=== PATIENT | female | born 1960 | race Caucasian/White ===

== ENCOUNTER → 2016-12-05 | Outpatient (CLI) | payer MEDICARE, OTHER ==
[~2016-12-05] MED LIST: ADVAIR; ADVAIR 250-501 EAC1 IH; ADVAIR 250-501 EAC1 INH; ADVAIR 2501 DISK W/D PO; ADVAIR 5001 DISK W/D PO; ALBUTEROL 0.5ML INH; ALBUTEROL17 GM INH; ALPRAZOLAM PO; ALPRAZOLAM0.5 MG PO; AMLODIPINE BESY10 MG PO; ATARAX PO; AZITHROMYCIN250 MG PO; BACTRIM DS TABL1 TAB PO; BENTYL10 M1 PO; BUSPAR30 MG PO; CAPOZIDE; CEFDINIR300 MG PO; COMBIVENT; COMBIVENT MININEB INH; COMBIVENT MININEB NEB; COMBIVENT RESPIM4 GM INH; COMBIVENT U/D3 M2 INH; COMBIVENT U/D3 M2 PO; COMBIVENT U/D3 ML INH; COMBIVENT14.7 GM INH; DALIRESP500 MCG PO; FLEXERIL10 M1 PO; FLEXERIL10 MG PO; GABAPENTIN400 M2 PO; GABAPENTIN600 MG PO; GLUCOPHAGE500 MG PO; GRALISE600 MG PO; HCTZ PO; HUMIBID-LA600 MG PO; HYDROCODON-ACE1 EAC7 PO; HYDROCODONE-APA1 T57 PO; LEVAQUIN PO; LISINOPRIL; LISINOPRIL PO; LISINOPRIL-HCTZ1 T15 PO; LISINOPRIL-HCTZ1 T17 PO; METFORMIN HCL500 M4 PO; METFORMIN PO; METOPROLOL TAR25 MG PO; MIRALAX119 GM PO; MIRALAX17 GM DOB; MORGIDOX100 MG PO; NICOTINE TRANSD14 MG TD; NILSTAT PO; NORVASC PO; OMEPRAZOLE20 M1 PO; OMNICEF300 M1 PO; OMNICEF300 MG PO; OXYCODONE-ACET1 EAC1 PO; OXYGEN; PATIENT'S PHARMACY; POLYOX WSR-3011 GM PO; PREDNISONE PO; PREDNISONE10 M1 PO; PREDNISONE10 MG PO; PRILOSEC PO; PRILOSEC20 M1 PO; PRILOSEC20 MG PO; SENNA PO; SEROQUEL PO; SEROQUEL100 MG PO; SIMVASTATIN20 MG PO; TEMOVATE EMOLLI30 GM TOP; VISTARIL PO; ZESTORETIC 20-1 EACH PO; ZESTORETIC 20/21 TAB PO; ZOCOR PO; ZOCOR20 MG PO; [UNRECOGNIZED DRUG - REMARK]
--- NOTE | ~2016-12-05 | CT71 ---
[facility] A Service of [facility] RADIOLOGY TEXT RESULTS PATIENT: MINGO VAUGHAN [facility] UN[facility] #: [id number] AGE: [address]: JACKIE TOBAR MD SEX: F ORDER DR: [id number] [place] [id number] [facility]. [place], [place] [address] [id number] O MR#: [id number] Acc #: [id number] NAME: MINGO VAUGHAN. : 1960 SEX: F STUDY DATE/TIME: 12/05/2016 14:26 UNIT: [facility] ROOM: STUDY DESCRIPTION: CT Head Wo Contrast Attending Physician: Jackie Tobar M.D. Referring Physician: Jackie Tobar M.D. Ordering Physician: Jackie Tobar M.D. Primary Care Physician: Jackie Tobar M.D. MEDICAL IMAGING REPORT This report is preliminary unless electronic signature is present EXAM Noncontrast head CT 12/05/2016 HISTORY Frontal headaches every day for the last 6 months. Dizziness, loss of balance. FINDINGS This CT exam was performed with one or more of the following radiation dose reduction techniques: automatic exposure control, adjustment of mA and/or kV according to patient size, and iterative reconstruction. Axial noncontrast imaging of the brain demonstrates the brain parenchyma to be normal. No evidence of mass, mass effect or midline shift. No hemorrhage or abnormal extraaxial fluid collections. Ventricles, sulci and basilar cisterns are age appropriate. Bony calvarium, skull base, mastoids and sinuses are unremarkable. IMPRESSION Normal noncontrast head CT. Please note if clinically indicated further evaluation with MRI may be warranted due to its improved sensitivity for detection of intracranial pathology. Dictated by... Aby Fernandes M.D. THIS IS AN ELECTRONICALLY VERIFIED REPORT Aby Fernandes M.D. at 12/06/2016 8:37 AM Issa TD: 12/05/2016 18:27 JOB #: [id number] [facility] A Service of [facility] RADIOLOGY TEXT RESULTS PATIENT: MINGO VAUGHAN LOCATION: [facility] #: [id number] : [birth year] UNIT #: [id number] AGE: [address]: JACKIE TOBAR MD SEX: F ORDER DR: MEDICAL IMAGING REPORT Page 1 of 1 COPY
== END | disposition home or self-care (01) ==
LOC: CCAT 13:47
DX: R51 Headache (principal)
CPT/HCPCS: 70450

== ENCOUNTER → 2016-12-20 | Outpatient (CLI) | payer MEDICARE, OTHER ==
--- NOTE | ~2016-12-20 | EKG ---
PATIENT: MINGO VAUGHAN UNIT #: [id number] Ventricular Rate: 106 BPM Atrial Rate: 106 BPM P-R Interval: 128 ms QRS Duration: 78 ms Q-T Interval: 346 ms QTC Calculation(Bezet): 459 ms P [place]: 72 degrees Calculated R [place]: 43 degrees Calculated T [place]: 70 degrees Diagnosis Line: Sinus tachycardia Diagnosis Line: Otherwise normal ECG Diagnosis Line: When compared with ECG of 26-DEC-2015 11:23, Diagnosis Line: Criteria for Anterior infarct are no longer Diagnosis Line: Present Diagnosis Line: Borderline criteria for Inferior infarct are no Diagnosis Line: longer Present Diagnosis Line: Nonspecific T wave abnormality no longer evident Diagnosis Line: in Lateral leads Diagnosis Line: QT has shortened Diagnosis Line: Confirmed by JESSE RODRIGUEZ MD ([id number]) on 12/20/2016 Diagnosis Line: 6:50:01 PM INTERPRETING MD: MICHAEL OCHOA
[2016-12-20 09:49] LABS: HEMATOCRIT 37.7 % (35.0-45.0); HEMOGLOBIN 11.9 gm/dL (12.0-16.0); MEAN CELL VOLUME 89.1 FL (83-96); MEAN CORPUSCULAR HEMOGLOBIN 28.3 PG (28-34); MEAN CORPUSCULAR HGB CONC 31.7 g/dL (30-36); MEAN PLATELET VOLUME 7.5 FL (6.5-11.5); RED BLOOD COUNT 4.23 X10e (3.90-5.30); RED CELL DISTRIBUTION WIDTH 15.6 % (11.0-15.5); WHITE BLOOD COUNT 6.1 X10e3 (4.0-10.5)
[2016-12-20 10:03] LABS: PARTIAL THROMBOPLASTIN TIME 24.5 SECONDS (23.5-31.3); PROTHROMBIN TIME (PATIENT) 10.5 SECONDS (9.6-11.5)
[2016-12-20 10:15] LABS: BUN/CREATININE RATIO 14.28; CALCIUM SERUM 9.2 mg/dL (8.4-10.2); CREATININE SERUM 0.7 mg/dL (0.6-1.4); GLOM FILT RATE Estimated 96.9 mL/min (>60); POTASSIUM 4.1 mmol/L (3.5-5.1)
== END | disposition home or self-care (01) ==
LOC: CCVL 09:17
PROVIDERS: Internal Medicine Cardiovascular Disease
DX: R07.89 Other chest pain (principal); I51.9 Heart disease, unspecified; J44.9 Chronic obstructive pulmonary disease, unspecified; F41.9 Anxiety disorder, unspecified; F17.210 Nicotine dependence, cigarettes, uncomplicated; I10 Essential (primary) hypertension; E11.9 Type 2 diabetes mellitus without complications; E78.5 Hyperlipidemia, unspecified
CPT/HCPCS: 36415; 80048; 85027; 85610; 85730; 93005; C1769; C1887; C1894; J1644; J2250; J3010

== ENCOUNTER 2016-12-31 19:19 | Inpatient (IN) | payer MEDICARE, OTHER ==
--- NOTE | ~2016-12-31 | CO ---
Unit #: [id number] #: [id number] Patient: KAREN VAUGHAN [id number] [address] [address] [id number] I MR#: [id number] NAME: KAREN VAUGHAN. ROOM: 326 Age: 56 Sex: F Admission Date: 12/31/2016 : 1960 Attending Physician: Eileen Richardson M.D. Primary Care Physician: Primary Care Physician No Consultation Date: 01/03/2017 CONSULTATION REPORT REASON FOR CONSULTATION Depression, anxiety. HISTORY OF PRESENT ILLNESS Ms. Karen Coleman is a 56-year-old female, seen in room 326, bed 1 on 01/03/2017. The patient was admitted on 12/31/2016 with COPD exacerbation. The patient reports that she is having terrible problem with the anxiety. The patient reported also feeling sad and depressed, received outpatient services through Dr. Anderson seen once. The patient reports current medications are not working. The patient is currently denied any suicidal or homicidal ideation. Denied any psychotic symptom. Denied any use of any drugs or alcohol. The patient's vital signs; temperature 98.4, pulse 104, respirations 18, blood pressure 148/96, and oxygen saturation 98%. PAST PSYCHIATRIC HISTORY Remarkable for history of outpatient treatment. No history of any suicide attempt or any inpatient treatment. MEDICAL HISTORY Remarkable for history of acute on chronic respiratory failure; acute bronchitis; COPD; diabetes mellitus type 2; history of loss of consciousness and confusion secondary to hypercapnia, resolved; oral thrush; anxiety; chronic pain. MEDICATIONS The patient is on albuterol nebulizer, Combivent inhaler, Advair, a tapering dose of prednisone, Neurontin 600 mg t.i.d., metformin, nystatin, Seroquel 100 mg at bedtime, nicotine, Humibid, Zocor, Percocet, omeprazole, Flexeril, and doxycycline. FAMILY HISTORY AND SOCIAL HISTORY The patient has a good support system. No history of abuse. No history of any substance abuse. REVIEW OF SYSTEMS Complete review of systems is unremarkable except as mentioned above. MENTAL STATUS EXAMINATION Vital signs, please see above. General appearance; the patient dressed casually in street clothes, cooperative. Attention span and concentration, fair. Speech; regular rate and coherent. Oriented in time, place, and person. Mood and affect were sad, dysphoric, anxious. Unit #: [id number] #: [id number] Patient: KAREN VAUGHAN Thought process, coherent. Thought content, the patient denied any thoughts of harming self or others or any auditory or visual hallucination. Recent and remote memory, fair. Language, intact. Fund of knowledge, fair. Insight and judgment, fair to slightly impaired. DIAGNOSES Psychiatric: Agoraphobia with panic disorder, F40.01; major depressive disorder, recurrent, severe, F33.2. Secondary diagnosis: Deferred. Medical diagnosis: Please refer to H and P. Stressors: Psychosocial stressors. ASSESSMENT/PLAN 1. Supportive psychotherapy and psychoeducation provided to the patient. 2. Educated about benefits and side effects of medication and course and prognosis of illness. 3. Advised to continue with current combination of medication and advised Seroquel 100 mg at bedtime and advised the patient to follow up in outpatient program such as [facility] program at [facility]. The patient was also given crisis line #[phone] in case of emergency. Please feel free to call if any questions, telephone #[phone]. Dictated by... Patrick Reyes M.D. SAM/lu TD: 01/04/2017 23:00 JOB #: [id number] CONSULTATION REPORT Page 1 of 1 X Patrick Reyes MD X CONSULTATION REPORT
--- NOTE | ~2016-12-31 | EE ---
Unit #: [id number] #: [id number] Patient: MINGO VAUGHAN [id number] [address] [address] [id number] I MR#: [id number] NAME: MINGO VAUGHAN. : 1960 SEX: F STUDY DATE/TIME: 01/01/2017 UNIT: C3A PCU ROOM: [address] [place] [address] DESCRIPTION: EEG Attending Physician: Eileen Richardson M.D. Referring Physician: Tran Raman M.D. Primary Care Physician: No Primary Care Physician NEURODIAGNOSTICS REPORT PROCEDURE PERFORMED EEG. REASON FOR STUDY Mental status changes. EEG DESCRIPTION This is an inpatient, digitally recorded, multi-montage, adult EEG with leads placed according to the International 10-20 system. Hyperventilation was not done, but photic stimulation was attempted. PROCEDURE REPORT With the patient fully aroused, there is 7.5 Hz posterior background. No good alpha. The patient was drowsy. I did not see any deeper stages of sleep. Hyperventilation was not done. Photic stimulation was attempted in intermittent stepwise pattern up to flash frequency of 30 Hz, but I did not see any driving, asymmetry or paroxysmal activity. No clinical events were seen. IMPRESSION This is an abnormal EEG showing mild diffuse slowing, which is indicative of encephalopathy. This is very nonspecific. Nothing suggesting seizure or status. An EEG like this does not rule out epilepsy. Clinical correlation is recommended. Dictated by... Cathy Hurst/yelena TD: 01/02/2017 07:44 JOB #: [id number] Unit #: [id number] #: [id number] Patient: MINGO VAUGHAN NEURODIAGNOSTICS REPORT Page 1 of 1 X Lisa Santos MD NEURODIAGNOSTICS REPORT
--- NOTE | ~2016-12-31 | DS ---
Unit #: [id number] #: [id number] Patient: MINGO VAUGHAN [id number] [address] [address] [id number] I MR#: [id number] NAME: MINGO VAUGHAN. ROOM: [facility] Age: 56 Sex: F Admission Date: 12/31/2016 : 1960 Discharge Date: 01/03/2017 Attending Physician: Eileen Richardson M.D. Primary Care Physician: No Primary Care Physician DISCHARGE SUMMARY DISCHARGE DIAGNOSES 1. Acute on chronic hypoxic respiratory failure. 2. Acute bronchitis. 3. Chronic obstructive pulmonary disease exacerbation. 4. Diabetes mellitus type 2, noninsulin dependent. 5. History of loss of consciousness and confusion, likely secondary to hypercapnia and sedative medicines: Patient is following primary doctor. 6. Smoking. 7. Oral thrush. 8. Anxiety. 9. Chronic pain following pain management. CONSULTATION Dr. Estevez. PROCEDURES None. LAB DATA MRSA negative. Creatinine 0.6, sodium 140, potassium 4.5. EEG shows mild diffuse slowing indicative of encephalopathy, nonspecific. Nothing to suggest seizures or status. Chest x-ray - normal. ABG on admission - pH 7.3, carbon dioxide 60, oxygen 95. ALLERGIES None. DISCHARGE MEDICATIONS 1. Albuterol nebulizer inhalation four times daily p.r.n. shortness of breath. 2. Combivent inhalation four times daily p.r.n. shortness of breath. 3. Advair 250/50, one Diskus inhalation b.i.d. 4. Tapering dose of prednisone. 5. Neurontin 600 three times daily. 6. Metformin 500 daily. 7. Nystatin 5 mL p.o. four times daily. 8. Seroquel 100 at bedtime. 9. Nicotine 14 mg transdermal daily. 10. Humibid LA 600 p.o. b.i.d. Unit #: [id number] #: [id number] Patient: MINGO VAUGHAN 11. Zocor 20 daily. 12. Percocet 10 mg, one tablet four times daily p.r.n. pain. 13. Omeprazole 20 daily. 14. Flexeril 10 mg p.o. b.i.d. p.r.n. muscle spasms. 15. Doxycycline 100 p.o. b.i.d. HOSPITAL COURSE The patient is a 56-year-old admitted because of shortness of breath. Aykyn-ip-mwrkmcz hypercapnic hypoxic respiratory failure from chronic obstructive pulmonary disease: The patient received oxygen. Currently she is on 3 liters. I am going to do home evaluation for daytime oxygen. She is on nighttime oxygen at home at 2 liters. Chronic obstructive pulmonary disease exacerbation with acute bronchitis: The patient was given IV Solu-Medrol, duo-nebs and Dulera. Currently breathing is better. Occasional wheezing present. Prednisone will be continued at home along with doxycycline, duo-nebs and Advair. Syncopal episodes: Outpatient followup has been started by primary care physician. Multiple tests have been done. EEG done here shows slowing. No acute seizure activity. Currently no syncope during the hospitalization course. I recommended followup with her primary care physician. She understands the instructions that she needs to see her primary care physician for her followup of the syncopal episodes. Diabetes mellitus type 2: Uncontrolled initially secondary to steroids. Currently stable. Anxiety: The patient will be seen by psychiatrist here in the hospital and I will discharge this patient home after seen by Dr. Reyes. FOLLOWUP 1. Followup with primary care physician in one week time. 2. Follow up with Dr. Estevez, pulmonary, in three weeks time. 3. Home O2 evaluation. The patient will be discharged after seen by Dr. Reyes. Discharge time taken is 32 minutes. ADDITIONAL JOB #: [id number] Dictated by... Cathy Dno TD: 01/03/2017 08:35 JOB #: [id number] Unit #: [id number] #: [id number] Patient: CLEMENTMINGO Eufemia DISCHARGE SUMMARY Page 1 of 1 X Eileen Richardson MD DISCHARGE SUMMARY
--- NOTE | ~2016-12-31 | HP ---
Unit #: [id number] #: [id number] Patient: MINGO VAUGHAN [id number] [address] [place], [place] [address] [id number] I MR#: [id number] NAME: MINGO VAUGHAN. ROOM: 40637 Age: 56 Sex: F Admission Date: 12/31/2016 : 1960 Attending Physician: Tran Raman M.D. Primary Care Physician: Primary Care Physician No HISTORY AND PHYSICAL CHIEF COMPLAINT COPD exacerbation with hypoxic hypercapnic respiratory failure secondary to bronchitis. HISTORY OF PRESENT ILLNESS This 56-year-old female with O2 dependent-COPD, chronic back pain is admitted for COPD exacerbation. The patient was well until two weeks prior to admission when she noticed that she was more fatigued, feeling hot and cold, with a nonproductive deep cough. More recently has become short of breath and felt very tight in her chest. She presents to this emergency department where she does have expiratory wheezes. Chest x-ray is negative, ABG is consistent with hypoxic hypercapnic respiratory failure. In the ER, the patient was treated with Solu-Medrol and given Robitussin AC. As an aside, the patient states she has had three episodes over the past six months of possible syncope/confusion. Recently underwent cardiac testing as an outpatient. PAST MEDICAL HISTORY 1. AODM. 2. COPD/asthma. Patient uses 2.5 liters of oxygen at bedtime. 3. Previous issue of hypertension. 4. Hyperlipidemia. 5. DJD. 6. Cardiac murmur. However, echo July 2013 showed normal ejection fraction with early diastolic dysfunction, trace MR, mild TR. 7. Chronic back pain, status post back surgery. 8. BTL. 9. Cyst removed from the left hand. 10. Bilateral knee surgery. 11. Negative EGD October 2015. ALLERGIES No known drug allergies. HOME MEDICATIONS 1. Oxygen 2.5 liters h.s. 2. Combivent. 3. Omeprazole 20 mg daily. 4. Seroquel 100 mg h.s. 5. Advair 250/50 one puff b.i.d. 6. Zocor 20 mg daily. Unit #: [id number] #: [id number] Patient: VAUGHAN,MINGO A 7. Flexeril 10 mg. 8. Metformin 500 mg h.s. 9. Percocet 10/325. SOCIAL HISTORY The patient lives with her and brother. She was smoking 2-3 packs per day of tobacco, now smokes one-half pack per day. Does not drink alcohol or use illicit drugs. FAMILY HISTORY Diabetes. REVIEW OF SYSTEMS Notable for increasing shortness of breath, tightness in the chest, cough, fatigue, episodes of loss of consciousness and confusion, diabetes, COPD, tobacco, hyperlipidemia, DJD, chronic back pain, above-mentioned surgeries. All other systems were reviewed and are negative. PHYSICAL EXAMINATION VITAL SIGNS: Temperature 98.6, pulse 116, respirations 20, blood pressure 125/75, O2 saturation 93% on 2.5 liters of oxygen. GENERAL: Pleasant, 56-year-old female currently in no acute distress. HEENT: Eyes PERRLA. Extraocular muscles are intact. Pharynx benign. Oral thrush. NECK: Supple without adenopathy or thyromegaly. CHEST: Expiratory wheezes in the upper lobes bilaterally. HEART: Normal S1, S2 without murmur. ABDOMEN: Bowel sounds are present. No hepatosplenomegaly, tenderness or masses. EXTREMITIES: Without clubbing, cyanosis, or edema. Pedal pulses are somewhat diminished. NEUROLOGIC: Awake, alert, oriented. Cranial nerves are intact. Equal strength throughout. DIAGNOSTIC STUDIES LABORATORY: Hematocrit 35.3, normal white count and platelet count and coagulation studies. SMA-12 glucose 113, chloride 98, CO2 is 33. Normal BNP. ABG pH 7.36, pCO2 of 60, pO2 of 95.7, O2 saturation 89.1% on 2 liters of oxygen. Cardiac markers are negative. IMAGING: Chest x-ray no acute disease. CARDIOVASCULAR: EKG shows sinus tachycardia, rate 112. ASSESSMENT 1. Chronic obstructive pulmonary disease exacerbation with hypercapnic, hypoxic fvabi-ml-pwwogsd respiratory failure secondary to bronchitis. 2. Adult-onset diabetes mellitus. 3. Episodes of loss of consciousness and confusion. I suspect due to hypercapnia and sedating medicines, some of these episodes may be related to a pulmonary issue. 4. Tobacco use. 5. Oral thrush. PLAN 1. Steroids, antibiotics, bronchodilators, Advair, Pulmonary to see. 2. Nystatin swish and swallow. 3. Smoking cessation counseling. Unit #: [id number] #: [id number] Patient: MINGO VAUGHAN 4. Obtain EEG and notify Dr. Cantu of admission. 5. Decrease sedatives while acutely ill. 6. DVT prophylaxis. 1. Dictated by Tran Raman M.D. AML/cs TD: 12/31/2016 23:53 JOB #: [id number] HISTORY AND PHYSICAL Page 1 of 1 X Tran Raman MD X HISTORY AND PHYSICAL
--- NOTE | ~2016-12-31 | CR72 ---
[facility] A Service [facility] RADIOLOGY TEXT RESULTS PATIENT: MINGO VAUGHAN LOCATION: [facility] 326-01 : 60 UNIT #: [id number] AGE: [address]: Eileen Richardson MD SEX: F ORDER DR: [id number] [facility] [address] [facility]. [place], [place] [address] [id number] I MR#: [id number] Acc #: [id number] NAME: MINGO VAUGHAN. : 1960 SEX: F STUDY DATE/TIME: 12/31/2016 20:23 UNIT: [address] ROOM: [address] [place] [address] DESCRIPTION: CR Chest Single View Portable Attending Physician: Eileen Richardson M.D. Ordering Physician: Rebeca Peck M.D. Primary Care Physician: No Primary Care Physician MEDICAL IMAGING REPORT This report is preliminary unless electronic signature is present EXAM Single view of the chest dated 12/31/2016. COMPARISON Chest, 2 views, dated 08/06/2016. HISTORY Shortness of air for 1 week. 96% O2 sats at 4 L of oxygen. TECHNIQUE Frontal view of the chest was obtained. FINDINGS A single AP portable view of the chest shows both lungs to be clear. The heart is normal in size. The mediastinal contour is normal. No significant bone abnormalities are seen. Endplate osteophytes are noted in the inferior T-spine. IMPRESSION Normal portable chest. Dictated by... Tamika Waggoner M.D. THIS IS AN ELECTRONICALLY VERIFIED REPORT Tamika Waggoner M.D. at 01/03/2017 3:33 PM CPR/tmw TD: 01/01/2017 10:20 JOB #: [id number] [facility] A [facility] RADIOLOGY TEXT RESULTS PATIENT: MINGO VAUGHAN LOCATION: [facility] 326- : [birth year] UNIT #: [id number] AGE: [address]: Eileen Richardson MD SEX: F ORDER DR: MEDICAL IMAGING REPORT Page 1 of 1 COPY
--- NOTE | ~2016-12-31 | EKG ---
PATIENT: MINGO VAUGHAN UNIT #: [id number] Ventricular Rate: 112 BPM Atrial Rate: 112 BPM P-R Interval: 126 ms QRS Duration: 64 ms Q-T Interval: 338 ms QTC Calculation(Bezet): 461 ms P [place]: 75 degrees Calculated R [place]: 52 degrees Calculated T [place]: 79 degrees Diagnosis Line: Sinus tachycardia Diagnosis Line: Normal ECG Diagnosis Line: When compared with ECG of 20-DEC-2016 10:09, Diagnosis Line: No significant change was found Diagnosis Line: Confirmed by FELIBERTO FITCH MD ([id number]) on Diagnosis Line: 12/31/2016 10:25:09 PM INTERPRETING : NOLAN
[~2016-12-31 19:19] MED LIST changes: -COMBIVENT RESPIM4 GM INH; -COMBIVENT U/D3 M2 PO; -DALIRESP500 MCG PO; -GABAPENTIN600 MG PO; -HUMIBID-LA600 MG PO; -METFORMIN PO; -MORGIDOX100 MG PO; -NICOTINE TRANSD14 MG TD; -NORVASC PO; -OMNICEF300 M1 PO; -OMNICEF300 MG PO; -PATIENT'S PHARMACY; -PREDNISONE10 M1 PO; -PRILOSEC PO; -VISTARIL PO; -ZESTORETIC 20-1 EACH PO; -ZOCOR PO
[2016-12-31 20:36] LABS: ARTERIAL BLD GAS O2 SATURATION 89.1 % (90.0-100.0); ARTERIAL BLOOD GAS ALLEN TEST NORMAL; ARTERIAL BLOOD GAS ART SITE RIGHT RADIAL; ARTERIAL BLOOD GAS DELIVERY NASAL CANNULA; ARTERIAL BLOOD GAS HCO3 33.9 mmol/L; ARTERIAL BLOOD GAS MET HB 0.8 %sat (0.0-2.0); ARTERIAL BLOOD GAS PCO2 60.3 mmHg (35.0-45.0); ARTERIAL BLOOD GAS PO2 95.7 mmHg (80.0-100); ARTERIAL BLOOD GAS pH 7.359 (7.350-7.450); ARTERIAL DRAW? YES
[2016-12-31 20:55] LABS: BASOPHIL# 0.1 X10e3 (0-0.3); BASOPHIL% 0.5 % (0-2.5); EOSINOPHIL# 0.1 X10e3 (0-0.7); EOSINOPHIL% 0.6 % (0.0-7.0); HEMATOCRIT 35.3 % (35.0-45.0); HEMOGLOBIN 11.2 gm/dL (12.0-16.0); LYMPHOCYTE# 1.8 X10e3 (1.0-3.5); LYMPHOCYTE% 18.4 % (17.0-45.0); MEAN CELL VOLUME 88.9 FL (83-96); MEAN CORPUSCULAR HEMOGLOBIN 28.3 PG (28-34); MEAN CORPUSCULAR HGB CONC 31.9 g/dL (30-36); MEAN PLATELET VOLUME 7.4 FL (6.5-11.5); MONOCYTE% 10.1 % (3.0-12.0); NEUTROPHIL# 6.8 X10e3 (1.5-7.1); NEUTROPHIL% 70.4 % (40-75); PLATELET COUNT 395 X10e3 (140-420); RED BLOOD COUNT 3.97 X10e (3.90-5.30); RED CELL DISTRIBUTION WIDTH 16.5 % (11.0-15.5); WHITE BLOOD COUNT 9.6 X10e3 (4.0-10.5)
[2016-12-31 20:58] LABS: DIFF IND NO
[2016-12-31 21:06] LABS: INR 1.1; PARTIAL THROMBOPLASTIN TIME 27.3 SECONDS (23.5-31.3); PROTHROMBIN TIME (PATIENT) 11.5 SECONDS (10.0-11.7)
[2016-12-31 21:24] LABS: BILIRUBIN, DIRECT 0.1 mg/dL (0.0-0.2); BILIRUBIN,TOTAL 0.1 mg/dL (0.2-2.0); BUN/CREATININE RATIO 16.66; CALCIUM SERUM 9.3 mg/dL (8.4-10.2); CREATININE SERUM 0.6 mg/dL (0.6-1.4); GLOM FILT RATE Estimated 101.9 mL/min (>60); POTASSIUM 4.1 mmol/L (3.5-5.1); PROTEIN TOTAL SERUM 7.5 g/dL (6.0-8.3)
[2016-12-31 21:42] LABS: POC - CKMB 3.2 ng/mL (0.0-7.9); POC - TROPONIN <0.05 ng/mL (<=0.05)
[2016-12-31 23:41] LABS: POC - CKMB 3.5 ng/mL (0.0-7.9); POC - TROPONIN <0.05 ng/mL (<=0.05)
[2017-01-01 05:39] LABS: BASOPHIL% 0.2 % (0-2.5); HEMATOCRIT 36.9 % (35.0-45.0); HEMOGLOBIN 11.6 gm/dL (12.0-16.0); LYMPHOCYTE# 0.5 X10e3 (1.0-3.5); LYMPHOCYTE% 5.4 % (17.0-45.0); MEAN CELL VOLUME 89.8 FL (83-96); MEAN CORPUSCULAR HEMOGLOBIN 28.3 PG (28-34); MEAN CORPUSCULAR HGB CONC 31.6 g/dL (30-36); MEAN PLATELET VOLUME 7.7 FL (6.5-11.5); MONOCYTE# 0.1 X10e3 (0-1.0); MONOCYTE% 0.7 % (3.0-12.0); NEUTROPHIL# 9.6 X10e3 (1.5-7.1); NEUTROPHIL% 93.7 % (40-75); PLATELET COUNT 386 X10e3 (140-420); RED BLOOD COUNT 4.11 X10e (3.90-5.30); RED CELL DISTRIBUTION WIDTH 16.7 % (11.0-15.5); WHITE BLOOD COUNT 10.2 X10e3 (4.0-10.5)
[2017-01-01 06:01] LABS: DIFF IND NO
[2017-01-01 06:54] LABS: BUN/CREATININE RATIO 18.33; CALCIUM SERUM 9.1 mg/dL (8.4-10.2); CREATININE SERUM 0.6 mg/dL (0.6-1.4); GLOM FILT RATE Estimated 101.9 mL/min (>60); POTASSIUM 4.7 mmol/L (3.5-5.1)
[2017-01-03 06:57] LABS: BUN/CREATININE RATIO 38.33; CALCIUM SERUM 9.5 mg/dL (8.4-10.2); CREATININE SERUM 0.6 mg/dL (0.6-1.4); GLOM FILT RATE Estimated 101.9 mL/min (>60); POTASSIUM 4.5 mmol/L (3.5-5.1)
[2017-01-03] MEDS ORDERED: NILSTAT PO (11:56)
[2017-01-03] MEDS ORDERED: NICOTINE TRANSD14 MG TD (11:58)
[2017-01-03] MEDS ORDERED: HUMIBID-LA600 MG PO (12:01)
[2017-01-03] MEDS ORDERED: MORGIDOX100 MG PO (12:06)
[2017-01-03] MEDS ORDERED: PREDNISONE10 MG PO (12:10)
[2017-01-03] MEDS ORDERED: COMBIVENT U/D3 M2 PO (12:13)
[2017-01-03] MEDS ORDERED: VISTARIL PO (12:20)
== END 2017-01-03 13:41 | disposition home or self-care (01) | DRG 189 ==
LOC: CED 19:19 → CEDOF 23:15 → C3A PCU 23:15 → CED 23:38 → CEDOF 23:38 → C3A PCU 01-01 02:48
PROVIDERS: Emergency Medicine; Internal Medicine; Internal Medicine Pulmonary Disease; Student in an Organized Health Care Education/Training Program
DX: J96.21 Acute and chronic respiratory failure with hypoxia (principal); B37.0 Candidal stomatitis; J44.0 Chronic obstructive pulmonary disease with (acute) lower respiratory infection; F33.2 Major depressive disorder, recurrent severe without psychotic features; J44.1 Chronic obstructive pulmonary disease with (acute) exacerbation; E11.65 Type 2 diabetes mellitus with hyperglycemia; J96.22 Acute and chronic respiratory failure with hypercapnia; J20.9 Acute bronchitis, unspecified; Z79.84 Long term (current) use of oral hypoglycemic drugs; F17.210 Nicotine dependence, cigarettes, uncomplicated; F41.9 Anxiety disorder, unspecified; G89.29 Other chronic pain; R55 Syncope and collapse; T38.0X5A Adverse effect of glucocorticoids and synthetic analogues, initial encounter; Y92.9 Unspecified place or not applicable; I10 Essential (primary) hypertension; E78.5 Hyperlipidemia, unspecified; M19.90 Unspecified osteoarthritis, unspecified site; Z98.51 Tubal ligation status; R41.0 Disorientation, unspecified; Z71.6 Tobacco abuse counseling; F40.01 Agoraphobia with panic disorder
CPT/HCPCS: 36415; 36600; 71010; 80048; 80076; 82553; 82803; 82947; 83880; 84484; 85025; 85610; 85730; 87070; 87633; 93005; 94640; 94664; 94760; 95816; 96374; 99285; 99406; J1650; J1815; J2920; J2930

== ENCOUNTER 2017-01-23 09:48 | Inpatient (IN) | payer MEDICARE, OTHER ==
--- NOTE | ~2017-01-23 | CR72 ---
[facility] A Service of [facility] RADIOLOGY TEXT RESULTS PATIENT: MINGO VAUGHAN LOCATION: [place] [address]-15 : 60 UNIT #: [id number] AGE: [address]: Magno Millard MD SEX: F ORDER DR: [id number] [facility] [address] [facility] [place], [place] [address] [id number] I MR#: [id number] Acc #: [id number] NAME: MINGO VAUGHAN. : 1960 SEX: F STUDY DATE/TIME: 01/24/2017 5:34 UNIT: [facility] ROOM: [facility] STUDY DESCRIPTION: CR Chest Single View Portable Attending Physician: Philip Guerra M.D. Ordering Physician: Gui Marsh M.D. Primary Care Physician: Primary Care Physician No MEDICAL IMAGING REPORT This report is preliminary unless electronic signature is present EXAM Frontal chest 01/24/2017 INDICATION 56-year-old female with shortness of air, problems with balance and confusion. Symptoms began 01/23/2017. Hypertension. COPD. TECHNIQUE Frontal chest was performed and compared with 01/23/2017. FINDINGS Cardiac silhouette within normal limits. The vascularity is normal. Lungs appear clear. There is old healed granulomatous disease. No pneumothorax. IMPRESSION Improvement in overall appearance of the chest. Improvement in lung aeration. No new opacities or pneumothorax. Dictated by... Hector Lakhani M.D. THIS IS AN ELECTRONICALLY VERIFIED REPORT Hector Lakhani M.D. at 01/24/2017 4:00 PM OTILIA/cary TD: 01/24/2017 06:41 JOB #: [id number] MEDICAL IMAGING REPORT Page 1 of 1 COPY
--- NOTE | ~2017-01-23 | DS ---
Unit #: [id number] #: [id number] Patient: MINGO VAUGHAN [id number] [address] [address] [id number] I MR#: [id number] NAME: MINGO VAUGHAN. ROOM: 239 Age: 56 Sex: F Admission Date: 01/23/2017 : 1960 Discharge Date: 01/25/2017 Attending Physician: Magno Millard M.D. Primary Care Physician: No Primary Care Physician DISCHARGE SUMMARY PRIMARY DIAGNOSIS Altered mental status secondary to respiratory failure and polypharmacy. SECONDARY DIAGNOSES 1. Acute hypercapnic on top of chronic hypercapnic respiratory failure. 2. Acute hypoxemic on top of chronic hypoxemic respiratory failure. 3. Anxiety disorder. 4. Benzodiazepine abuse. 5. Diabetes mellitus type 2. 6. Polypharmacy. HOSPITAL COURSE The patient was admitted to the hospital after missing her prescribed medications with benzodiazepines at home that she was not prescribed. She came in with initial bicarb and blood gas of 110 and pH of 7.175. She was placed on BiPAP and monitored in the ICU with consultation with Dr. Schaeffer with pulmonology. Once we held her gabapentin, opiates, Flexeril and obviously did not give her any benzodiazepines, she improved within the first 24 hours. We continued to monitor and she continued to do well and is being discharged home. There is question of a possible pneumonia and patient will go home on a short course of prednisone and Omnicef at the recommendation of pulmonology. The patient reports that she is not going to be using benzodiazepines anymore, that she reports that this incidence has "opened her eyes." She refuses consideration for inpatient evaluation at Our for drug abuse and the patient is certainly capable of making her own decisions in that regard. DISCHARGE DISPOSITION To home. DISCHARGE STATUS Stable. DISCHARGE ACTIVITY Ad octavio. DISCHARGE DIET Diabetic, low sodium diet. DISCHARGE FOLLOWUP With her regular stem frazer in three to six weeks. Follow up with Our outpatient psychiatry in one week. Follow up with her PCP in one week. She was specifically advised not to take any pills that are not on her list at discharge in addition to advising her against Unit #: [id number] #: [id number] Patient: MINGO VAUGHAN. I have taken her off of her Flexeril for now and decreased her gabapentin to twice daily. DISCHARGE MEDICATIONS 1. Advair 250/50, one puff inhaled b.i.d. 2. Combivent Respimat, one puff q.i.d. 3. Prednisone 40 mg p.o. daily for five days. 4. Lisinopril/hydrochlorothiazide 20/25, one tablet p.o. daily. 5. Gabapentin 600 mg p.o. b.i.d. 6. Glucophage 500 mg p.o. daily. 7. Seroquel 100 mg p.o. q. h.s. 8. Omnicef 300 mg p.o. b.i.d. 9. Zocor 20 mg p.o. q. h.s. 10. Oxycodone with Tylenol 10 mg, one tablet p.o. q.i.d. p.r.n. pain. 11. Prilosec 20 mg p.o. daily. Dictated by... Magno Millard M.D. PORTER/bart TD: 01/29/2017 08:00 JOB #: [id number] CC: Nikolay Chin M.D. DISCHARGE SUMMARY Page 1 of 1 X Magno Millard MD X DISCHARGE SUMMARY
--- NOTE | ~2017-01-23 | CR72 ---
[facility] A Service [facility] RADIOLOGY TEXT RESULTS PATIENT: MINGO VAUGHAN LOCATION: [facility] : 60 UNIT #: [id number] AGE: [address]: Philip Guerra MD SEX: F ORDER DR: [id number] [facility] [address] [place], [place] [address] [id number] E MR#: [id number] #: [id number] NAME: MINGO VAUGHAN. : 1960 SEX: F STUDY DATE/TIME: 01/23/2017 UNIT: [facility] ROOM: STUDY DESCRIPTION: CR Chest Single View Portable Attending Physician: Alexei Rodriguez D.O. Ordering Physician: Alexei Rodriguez D.O. Primary Care Physician: No Primary Care Physician MEDICAL IMAGING REPORT This report is preliminary unless electronic signature is present EXAM Chest portable 01/23/2017 1038 hours HISTORY Shortness of air with altered mental status today. History of COPD and hypertension. COMPARISON 12/31/2016 FINDINGS Portable upright chest demonstrates normal cardiac, mediastinal, and hilar contours. There is new, mild pulmonary venous distension with mild upper lobe interstitial prominence which could represent mild interstitial edema. There is no airspace change or effusion. IMPRESSION Normal heart size with new pulmonary venous distension and mild perihilar interstitial prominence, as compared to 12/31/2016. An element of mild interstitial edema cannot be excluded. There is no airspace change or effusion. Dictated by... Shannan Angeles M.D. THIS IS AN ELECTRONICALLY VERIFIED REPORT Shannan Angeles M.D. at 01/23/2017 2:30 PM YOU/claude TD: 01/23/2017 11:53 JOB #: [id number] [facility] A Service [facility] RADIOLOGY TEXT RESULTS PATIENT: MINGO VAUGHAN LOCATION: [facility] : 60 UNIT #: [id number] AGE: [address]: Philip Guerra MD SEX: F ORDER DR: MEDICAL IMAGING REPORT Page 1 of 1 COPY
--- NOTE | ~2017-01-23 | EKG ---
PATIENT: MINGO VAUGHAN UNIT #: [id number] Ventricular Rate: 114 BPM Atrial Rate: 114 BPM P-R Interval: 128 ms QRS Duration: 68 ms Q-T Interval: 336 ms QTC Calculation(Bezet): 463 ms P Canova: 76 degrees Calculated R Canova: 56 degrees Calculated T Canova: 73 degrees Diagnosis Line: Sinus tachycardia Diagnosis Line: Septal infarct (cited on or before 23-JAN-2017) Diagnosis Line: Abnormal ECG Diagnosis Line: When compared with ECG of 31-DEC-2016 20:21, Diagnosis Line: No significant change was found Diagnosis Line: Confirmed by SOLOMON MENJIVAR MD ([id number]) on Diagnosis Line: 01/24/2017 10:36:50 AM INTERPRETING MD: OTTO OCHOA
--- NOTE | ~2017-01-23 | CT71 ---
[facility] A Service [facility] RADIOLOGY TEXT RESULTS PATIENT: MINGO VAUGHAN LOCATION: CICCU3 CICCU3-15 : 60 UNIT #: [id number] AGE: [address]: Magno Millard MD SEX: F ORDER DR: [id number] [facility] [address] [place], [place] [address] [id number] E MR#: [id number] #: [id number] NAME: MINGO VAUGHAN. : 1960 SEX: F STUDY DATE/TIME: 01/23/2017 10:07 UNIT: [facility] ROOM: STUDY DESCRIPTION: CT Head Wo Contrast Attending Physician: Alexei Rodriguez D.O. Ordering Physician: Alexei Rodriguez D.O. Primary Care Physician: Primary Care Physician No MEDICAL IMAGING REPORT This report is preliminary unless electronic signature is present EXAM Head CT no contrast 01/23/[address] This CT exam was performed with one or more of the following radiation dose reduction techniques: automatic control, adjustment of mA and/or kV according to patient size, and iterative reconstruction. HISTORY Lethargy this morning last seen normal last night. COMPARISON Prior head CT 12/05/2016 FINDINGS There is no intracranial hemorrhage or mass. There is no hydrocephalus or extraaxial fluid collection. There is mild motion degradation but there is otherwise no evidence of acute ischemia or other acute abnormality. The extracranial soft tissues are unremarkable. The skull base and calvaria are normal. IMPRESSION Mild motion degradation otherwise normal negative unenhanced head CT. No acute abnormality. Dictated by... Jer Wheatley M.D. THIS IS AN ELECTRONICALLY VERIFIED REPORT Jer Wheatley M.D. at 01/24/2017 5:05 PM TEV/rnr [facility] A Service [facility] RADIOLOGY TEXT RESULTS PATIENT: MINGO VAUGHAN LOCATION: CICCU3 CICCU3-15 : 60 UNIT #: [id number] AGE: [address]: Magno Millard MD SEX: F ORDER DR: TD: 01/23/2017 12:44 JOB #: [id number] MEDICAL IMAGING REPORT Page 1 of 1 COPY
--- NOTE | ~2017-01-23 | HP ---
Unit #: [id number] #: [id number] Patient: MINGO VAUGHAN [id number] [facility] [address] [place], [place] [address] [id number] I MR#: [id number] NAME: MINGO VAUGHAN. ROOM: [facility] Age: 56 Sex: F Admission Date: 01/23/2017 : 1960 Attending Physician: Philip Guerra M.D. Primary Care Physician: No Primary Care Physician HISTORY AND PHYSICAL CHIEF COMPLAINT Altered mental status. HISTORY OF PRESENT ILLNESS History is obtained from medical staff. The patient was reportedly found down by unresponsive. EMS was called. The patient was placed on a nonrebreather and transported to [facility] at approximately 9 a.m. The patient was placed on BiPAP and on arrival blood gas revealed hypoxic and severe hypercapnic respiratory failure. The patient was treated with IV steroids and inhaled bronchodilators in the emergency room. Imaging with interval improvement. Upon exam the patient remains very lethargic. This is thought to represent a chronic obstructive pulmonary disease exacerbation which is made worse by polypharmacy as the patient is on multiple sedating medications, including oxycodone, Neurontin, Seroquel, Flexeril, though urine drug screen is positive for tricyclics and benzodiazepines. PAST MEDICAL HISTORY 1. Chronic obstructive pulmonary disease. 2. Asthma. 3. She uses 2.5 liters of oxygen at bedtime. 4. Hypertension. 5. Hyperlipidemia. 6. Degenerative joint disease. 7. Cardiac murmur, reportedly with echocardiogram 07/2013 with normal ejection fraction. Early diastolic dysfunction. Trace MR. Mild TR. 8. Chronic back pain, status post surgery. 9. Cyst removed from the left hand. 10. Bilateral knee surgeries. 11. Negative EGD in 10/2015. SOCIAL HISTORY As per previous medical records, this patient lives with her and brother. As of the last visit she smokes one-half pack per day. The patient has no known history of alcohol use or illicit drug use. FAMILY HISTORY As per the previous visit she has a significant family history for diabetes. ALLERGIES No known drug allergies. HOME MEDICATIONS Unit #: [id number] #: [id number] Patient: MINGO VAUGHAN 1. Oxycodone/acetaminophen 10/325 mg 1 tablet p.o. q.i.d. 2. Neurontin 600 mg p.o. t.i.d. 3. Advair 250/50 Diskus, 1 puff b.i.d. 4. Combivent 1 puff q.i.d. 5. Flexeril 10 mg p.o. b.i.d. 6. Zestoretic 1 tablet p.o. daily. 7. Glucophage 500 mg p.o. daily. 8. Prilosec 20 mg p.o. daily. 9. Seroquel 100 mg p.o. at bedtime. 10. Simvastatin 20 mg p.o. at bedtime. REVIEW OF SYSTEMS Unobtainable. The patient is very lethargic. The patient is a poor historian. The patient cannot speak in complete sentences. PHYSICAL EXAMINATION GENERAL: This is a 56-year-old lady who is obtunded. She is in no acute distress. VITALS: Heart rate 115, respiratory rate 16, saturation is 100%, blood pressure 135/80. HEENT: Eyes, pupils equally round and reactive to light and accommodation. Unable to check extraocular muscle movement. No oral thrush noted as per previous assessment. NECK: Supple. No adenopathy or thyromegaly. Trachea is midline. CHEST: She has very diminished breath sounds in both lungs. Bilaterally lower lobes with nearly absent breath sounds. Upper lobes with mild expiratory wheezes. There is symmetric chest motion with inspiration and expiration. HEART: Normal S1 and S2. Regular rate and rhythm. Tachycardic per the monitor. No murmur noted. ABDOMEN: Bowel sounds are present. No organomegaly upon palpation. EXTREMITIES: No clubbing, cyanosis or edema noted. Capillary refill is less than 2 seconds. Pulses are +2 in the upper and lower extremities. SKIN: No rashes noted. NEUROLOGIC: The patient is very somnolent. Arouses to vigorous stimulation. The patient is conversant. However, words are scattered. Cranial nerves appear grossly intact. The patient is able to move all extremities. DIAGNOSTIC STUDIES IMAGING: Chest x-ray with no concern for an infectious process. The patient has some increased perihilar interstitial markings. Some increased vascular prominence that was not noticed on previous films. LABORATORY: ABG, pH 7.23, CO2 93, pO2 122, bicarb 40. Saturation is 93%. Chemistry, the BUN is 7, creatinine is 0.5, GFR 108, sodium 138, potassium 4.1, chloride 96, CO2 37, white blood cell count 9.7, hemoglobin 10.7, platelets 300. ASSESSMENT/PLAN 1. Acute on chronic hypoxemic and hypercapnic respiratory failure/chronic obstructive pulmonary disease exacerbation. Continue IV steroids. Continue nebulizers. Continue BiPAP at current setting. The patient does not require endotracheal intubation at this time. However, will continue to assess. ABG in the a.m. Chest film in the a.m. as well. 2. Possible benzodiazepine overdose and/or polypharmacy. [facility] consult when medically stable. Hold all sedating medications Unit #: [id number] #: [id number] Patient: MINGO VAUGHAN for now. 3. Encephalopathy. Thought to be secondary to hypercapnia and polypharmacy. There is a mildly elevated ammonia level at 54. Will recheck this if the encephalopathy does not resolve with the resolution of hypercapnia. 4. Degenerative joint disease/chronic pain. Will reassess and plan on resuming home medications when appropriate. 5. Hyperlipidemia. Continue Zocor when able. 6. Diabetes mellitus type 2. Q.6 h. Accu-Cheks. Will begin insulin if glucose is greater than 220 while the patient remains n.p.o. 7. The patient is a chronic smoker. Will plan on smoking cessation when the patient is appropriate. Dictated by Domenic Maria Aprn for Cathy Cobb/zafar TD: 01/23/2017 16:01 JOB #: [id number] HISTORY AND PHYSICAL Page 1 of 1 X X HISTORY AND PHYSICAL
--- NOTE | ~2017-01-23 | CO ---
Unit #: [id number] #: [id number] Patient: MINGO VAUGHAN [id number] [place], [place] [address] [id number] I MR#: [id number] NAME: MINGO VAUGHAN. ROOM: [facility] Age: 56 Sex: F Admission Date: 01/23/2017 : 1960 Attending Physician: Magno Millard M.D. Primary Care Physician: No Primary Care Physician CONSULTATION REPORT REASON FOR CONSULTATION Respiratory failure. HISTORY OF PRESENT ILLNESS Ms. Vaughan is a 56-year-old female found down by her today. She was brought to the ER where she was found to have a pCO2 of 110. She was placed on BiPAP in the ER, and her pCO2 slowly decreased. She does take a fair amount of medicines, some of which can be sedating. She is more awake now and tells me that she has been more short of breath lately. She has a cough, sometimes productive of some yellow sputum. She denies chest pain. She has been wheezing a bit but not really worse. She is smoking 1/2 pack of cigarettes a day still. PAST MEDICAL HISTORY Past medical history is significant for hypercapnic respiratory failure, history of COPD, hypertension. MEDICATIONS ON ADMISSION 1. Oxycodone/acetaminophen 10/325 q.i.d. 2. Gabapentin 600 mg t.i.d. 3. Advair 250/50 one puff b.i.d. 4. Combivent Respimat 1 puff q.i.d. 5. Flexeril 10 mg p.o. b.i.d. 6. Zestoretic 20/25 p.o. daily. 7. Glucophage 500 mg p.o. daily. 8. Prilosec 20 mg p.o. daily. 9. Seroquel 100 mg p.o. at bedtime. 10. Zocor 20 mg p.o. at bedtime. ALLERGIES No known drug allergies. SOCIAL HISTORY She smokes 1/2 pack of cigarettes a day. FAMILY HISTORY Family history is significant for emphysema in her father, as well as probably a brother and some lung disease in her mother. SYSTEMS REVIEW She has not had any nausea or vomiting. She does have chronic pain. No leg swelling. All other systems are negative except as mentioned. PHYSICAL EXAMINATION Unit #: [id number] #: [id number] Patient: MINGO VAUGHAN GENERAL: She presents as a middle-aged female in no acute distress. VITAL SIGNS: Temperature is 98, pulse 98, respirations 20, blood pressure 138/83, saturation 97% on BiPAP. NECK: Neck is without adenopathy. RESPIRATORY: Evaluation of her lungs reveals that her breathing is not labored, again, on BiPAP. She has decreased breath sounds bilaterally. She has inspiratory wheezes posteriorly, right greater than left. HEART: Regular. ABDOMEN: Soft. Bowel sounds are present. EXTREMITIES: Without edema. 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 DIAGNOSTIC STUDIES IMAGING: Chest x-ray, to my exam, reveals increased interstitial markings bilaterally, maybe a little bit more in the upper lobes, but I did not think that there was any focal infiltrate. This was actually read as new pulmonary venous distention and mild perihilar interstitial prominence. There was no airspace change or effusion. She did have a CT head, which revealed negative unenhanced head CT. LABORATORY: Her original blood gas in the ER significant for pH of 7.175, pCO2 110, pO2 353, and this was on a non-rebreather. She had repeat blood gas - 7.23, pCO2 93, pO2 122 on BiPAP 15/5. She had a repeat - 7.29, pCO2 87, pO2 108, 50% FIO2 BiPAP 12/5. She has another one on BiPAP 14/5. Serum chemistry significant for a BUN of 7, creatinine 0.5, bicarb 37. She had a BNP of 62. White blood cell count 9,700, hemoglobin 10.7, hematocrit 34, platelets 300,000. IMPRESSION 1. Acute on chronic hypoxemic and, particularly, hypercapnic respiratory failure. 2. Comatose state initially, probably on the basis of hypercapnia, although given the medicines she is taking, certainly they can have a significant impact on her mental status. 3. Chronic pain syndrome. 4. Exacerbation of COPD. 5. Tobacco dependence. PLAN She is on Solu-Medrol 80 IV q.8, and I am fine with that. She is on DuoNeb q.4, which is fine. Procalcitonin was less than 0.05, but I would still consider treatment of bronchitis. I would like her to be on her BiPAP q.h.s. and p.r.n., and she can eat and she can have a break from her BiPAP tonight for a little while before bedtime. She certainly does not need to be intubated at this time. I have already discussed with her the need to quit smoking. Thank you very much for allowing me to participate in the care of this patient. Dictated by... Cathy Aldana/yelena Unit #: [id number] #: [id number] Patient: MINGO VAUGHAN TD: 01/24/2017 10:17 JOB #: [id number] CONSULTATION REPORT Page 1 of 1 X Josiah Schaeffer MD X CONSULTATION REPORT
[~2017-01-23 09:48] MED LIST changes: +COMBIVENT U/D3 M2 PO; +HUMIBID-LA600 MG PO; +MORGIDOX100 MG PO; +NICOTINE TRANSD14 MG TD; +VISTARIL PO
[2017-01-23 10:02] LABS: ARTERIAL BLD GAS O2 SATURATION 92.5 % (90.0-100.0); ARTERIAL BLOOD GAS CARBOXY HB 6.1 %sat (0.0-9.0); ARTERIAL BLOOD GAS HCO3 40.5 mmol/L; ARTERIAL BLOOD GAS MET HB 1.3 %sat (0.0-2.0)
[2017-01-23 10:03] LABS: ARTERIAL BLOOD GAS pH 7.175 (7.350-7.450)
[2017-01-23 10:04] LABS: ARTERIAL BLOOD GAS ART SITE RIGHT RADIAL; ARTERIAL BLOOD GAS DELIVERY NON REBREATHER MASK; ARTERIAL DRAW? YES
[2017-01-23] MEDS ORDERED: PATIENT'S PHARMACY (10:12)
[2017-01-23] MEDS ORDERED: GABAPENTIN600 MG PO (10:13)
[2017-01-23] MEDS ORDERED: OXYCODONE-ACET1 EAC1 PO (10:13)
[2017-01-23] MEDS ORDERED: FLEXERIL10 MG PO (10:13)
[2017-01-23] MEDS ORDERED: COMBIVENT RESPIM4 GM INH (10:13)
[2017-01-23] MEDS ORDERED: ADVAIR 250-501 EAC1 INH (10:13)
[2017-01-23] MEDS ORDERED: METFORMIN PO (10:14)
[2017-01-23] MEDS ORDERED: SEROQUEL PO (10:14)
[2017-01-23] MEDS ORDERED: ZOCOR PO (10:14)
[2017-01-23] MEDS ORDERED: ZESTORETIC 20-1 EACH PO (10:14)
[2017-01-23] MEDS ORDERED: PRILOSEC PO (10:14)
[2017-01-23 10:45] LABS: BASOPHIL% 0.4 % (0-2.5); EOSINOPHIL# 0.1 X10e3 (0-0.7); EOSINOPHIL% 0.9 % (0.0-7.0); HEMATOCRIT 34.3 % (35.0-45.0); HEMOGLOBIN 10.7 gm/dL (12.0-16.0); LYMPHOCYTE% 20.8 % (17.0-45.0); MEAN CELL VOLUME 90.2 FL (83-96); MEAN CORPUSCULAR HEMOGLOBIN 28.2 PG (28-34); MEAN CORPUSCULAR HGB CONC 31.3 g/dL (30-36); MEAN PLATELET VOLUME 7.2 FL (6.5-11.5); MONOCYTE# 0.8 X10e3 (0-1.0); MONOCYTE% 8.1 % (3.0-12.0); NEUTROPHIL# 6.8 X10e3 (1.5-7.1); NEUTROPHIL% 69.8 % (40-75); PLATELET COUNT 300 X10e3 (140-420); RED CELL DISTRIBUTION WIDTH 16.1 % (11.0-15.5); WHITE BLOOD COUNT 9.7 X10e3 (4.0-10.5)
[2017-01-23 10:46] LABS: DIFF IND NO
[2017-01-23 10:57] LABS: PROTHROMBIN TIME (PATIENT) 10.8 SECONDS (10.0-11.7)
[2017-01-23 11:11] LABS: ALBUMIN SERUM 3.8 g/dL (3.5-5.0); ALKALINE PHOSPHATASE 88 U/L (32-92); ALT (SGPT) 17 U/L (10-40); AST (SGOT) 15 U/L (10-42); BILIRUBIN, DIRECT 0.1 mg/dL (0.0-0.2); BILIRUBIN,TOTAL 0.1 mg/dL (0.2-2.0); BLOOD UREA NITROGEN 7 mg/dL (9-23); CALCIUM SERUM 8.7 mg/dL (8.4-10.2); CARBON DIOXIDE 37 mmol/L (22-31); CHLORIDE 96 mmol/L (100-111); CREATININE SERUM 0.5 mg/dL (0.6-1.4); GLOM FILT RATE Estimated 108.2 mL/min (>60); GLUCOSE FASTING 138 mg/dL (70-110); POTASSIUM 4.1 mmol/L (3.5-5.1); PROTEIN TOTAL SERUM 7.2 g/dL (6.0-8.3); SALICYLATE <4.0 mg/dL; SODIUM 138 mmol/L (135-145)
[2017-01-23 11:12] LABS: ACETAMINOPHEN <10 ug/mL; ALCOHOL BLOOD <5 mg/dL (0)
[2017-01-23 11:35] LABS: AMPHETAMINE NEG (NEG); BARBITURATES NEG (NEG); BENZODIAZEPINES POS (NEG); COCAINE NEG (NEG); MARIJUANA NEG (NEG); OPIATES NEG (NEG); TRICYCLIC ANTIDEPRESSANTS POS (NEG); U METHADONE NEG (NEG)
[2017-01-23 12:23] LABS: ARTERIAL BLD GAS O2 SATURATION 93.7 % (90.0-100.0); ARTERIAL BLOOD GAS CARBOXY HB 4.2 %sat (0.0-9.0); ARTERIAL BLOOD GAS HCO3 39.9 mmol/L; ARTERIAL BLOOD GAS MET HB 0.9 %sat (0.0-2.0); ARTERIAL BLOOD GAS pH 7.239 (7.350-7.450)
[2017-01-23 12:25] LABS: ARTERIAL BLOOD GAS PCO2 93.4 mmHg (35.0-45.0)
[2017-01-23 12:27] LABS: ARTERIAL BLOOD GAS ALLEN TEST NORMAL; ARTERIAL BLOOD GAS ART SITE RIGHT RADIAL; ARTERIAL BLOOD GAS DELIVERY BIPAP 15/5; ARTERIAL DRAW? YES
[2017-01-23 14:35] LABS: POC - CKMB 3.2 ng/mL (0.0-7.9); POC - TROPONIN <0.05 ng/mL (<=0.05)
[2017-01-23 19:49] LABS: ARTERIAL BLD GAS O2 SATURATION 95.9 % (90.0-100.0); ARTERIAL BLOOD GAS CARBOXY HB 1.7 %sat (0.0-9.0); ARTERIAL BLOOD GAS HCO3 42.2 mmol/L; ARTERIAL BLOOD GAS MET HB 0.8 %sat (0.0-2.0); ARTERIAL BLOOD GAS pH 7.291 (7.350-7.450)
[2017-01-23 19:51] LABS: ARTERIAL BLOOD GAS ALLEN TEST NORMAL; ARTERIAL BLOOD GAS ART SITE LEFT RADIAL; ARTERIAL BLOOD GAS PCO2 87.6 mmHg (35.0-45.0); ARTERIAL DRAW? YES
[2017-01-24 05:03] LABS: ARTERIAL BLD GAS O2 SATURATION 91.3 % (90.0-100.0); ARTERIAL BLOOD GAS CARBOXY HB 2.1 %sat (0.0-9.0); ARTERIAL BLOOD GAS HCO3 39.2 mmol/L; ARTERIAL BLOOD GAS MET HB 1.5 %sat (0.0-2.0)
[2017-01-24 05:06] LABS: ARTERIAL BLOOD GAS ALLEN TEST NORMAL; ARTERIAL BLOOD GAS ART SITE LEFT RADIAL; ARTERIAL BLOOD GAS DELIVERY BIPAP 14/5 R18; ARTERIAL BLOOD GAS PCO2 69.4 mmHg (35.0-45.0); ARTERIAL DRAW? YES
[2017-01-24 05:28] LABS: HEMATOCRIT 35.3 % (35.0-45.0); MEAN CELL VOLUME 89.2 FL (83-96); MEAN CORPUSCULAR HEMOGLOBIN 27.8 PG (28-34); MEAN CORPUSCULAR HGB CONC 31.2 g/dL (30-36); MEAN PLATELET VOLUME 7.9 FL (6.5-11.5); RED BLOOD COUNT 3.95 X10e (3.90-5.30); RED CELL DISTRIBUTION WIDTH 16.1 % (11.0-15.5); WHITE BLOOD COUNT 5.7 X10e3 (4.0-10.5)
[2017-01-24 05:52] LABS: ALBUMIN SERUM 3.3 g/dL (3.5-5.0); BILIRUBIN,TOTAL 0.4 mg/dL (0.2-2.0); CALCIUM SERUM 9.1 mg/dL (8.4-10.2); CREATININE SERUM 0.5 mg/dL (0.6-1.4); GLOM FILT RATE Estimated 108.2 mL/min (>60); POTASSIUM 4.4 mmol/L (3.5-5.1); PROTEIN TOTAL SERUM 6.3 g/dL (6.0-8.3)
[2017-01-25] MEDS ORDERED: PREDNISONE PO (13:04)
[2017-01-25] MEDS ORDERED: OMNICEF300 MG PO (13:04)
== END 2017-01-25 13:41 | disposition home or self-care (01) | DRG 917 ==
LOC: CED 09:48 → CEDOF 12:40 → CED 13:15 → CICCU3 13:15 → CEDOF 13:15 → CICCU3 15:04 → C2A 01-25 09:45
PROVIDERS: Emergency Medicine; Internal Medicine
PROC: 5A09457 Assistance with Respiratory Ventilation, 24-96 Consecutive Hours, Continuous Positive Airway Pressure (ICD-10-PCS; principal; 2017-01-23)
DX: T42.4X1A Poisoning by benzodiazepines, accidental (unintentional), initial encounter (principal); J96.22 Acute and chronic respiratory failure with hypercapnia; J96.21 Acute and chronic respiratory failure with hypoxia; G93.40 Encephalopathy, unspecified; J18.9 Pneumonia, unspecified organism; J44.0 Chronic obstructive pulmonary disease with (acute) lower respiratory infection; J44.1 Chronic obstructive pulmonary disease with (acute) exacerbation; J45.909 Unspecified asthma, uncomplicated; I10 Essential (primary) hypertension; E78.5 Hyperlipidemia, unspecified; M19.90 Unspecified osteoarthritis, unspecified site; Z99.81 Dependence on supplemental oxygen; G89.29 Other chronic pain; F17.210 Nicotine dependence, cigarettes, uncomplicated; Z71.6 Tobacco abuse counseling; F41.9 Anxiety disorder, unspecified; F13.10 Sedative, hypnotic or anxiolytic abuse, uncomplicated; E11.9 Type 2 diabetes mellitus without complications; Z79.84 Long term (current) use of oral hypoglycemic drugs; J20.9 Acute bronchitis, unspecified
CPT/HCPCS: 36415; 36600; 51702; 70450; 71010; 80048; 80053; 80076; 80307; 82140; 82308; 82553; 82803; 82947; 83605; 83880; 84484; 84703; 85025; 85027; 85610; 85730; 87040; 93005; 94640; 94660; 94760; 94761; 96374; 96375; 99291; G0480; J0696; J1650; J2310; J2930

== ENCOUNTER 2017-03-24 11:41 | Inpatient (IN) | payer MEDICARE, OTHER ==
[~2017-03-24] VITALS: Ht 157.5 cm; Wt 63.4 kg
--- NOTE | ~2017-03-24 | CR72 ---
[facility] A Service of [facility] RADIOLOGY TEXT RESULTS PATIENT: MINGO VAUGHAN LOCATION: [facility] 320-01 : [birth year] UNIT #: [id number] AGE: [address]: Khloe Merino MD SEX: F ORDER DR: [id number] [facility] [address] [place], [place] [address] [id number] I MR#: [id number] #: [id number] NAME: MINGO VAUGHAN. : 1960 SEX: F STUDY DATE/TIME: 03/24/2017 12:22 UNIT: [address] ROOM: [facility] STUDY DESCRIPTION: CR Chest Single View Portable Attending Physician: Khloe Merino M.D. Ordering Physician: Alexei Rodriguez D.O. Primary Care Physician: Primary Care Physician No MEDICAL IMAGING REPORT This report is preliminary unless electronic signature is present EXAM Single portable AP view of the chest compared to 01/24/2017. INDICATIONS Shortness of air for 2 days. Positive smoking history. FINDINGS There is a new right middle lobe or right lower lobe airspace opacity. There is some chronic interstitial opacities. Heart and mediastinal contours are stable. IMPRESSION New airspace opacity in the right middle lobe or right lower lobe compatible with pneumonia. Follow up radiographs recommended. Dictated by... Mehul Wright M.D. THIS IS AN ELECTRONICALLY VERIFIED REPORT Mehul Wright M.D. at 03/25/2017 11:49 AM RAINE/brain TD: 03/25/2017 10:07 JOB #: [id number] MEDICAL IMAGING REPORT Page 1 of 1 COPY
--- NOTE | ~2017-03-24 | CO ---
Unit #: [id number] #: [id number] Patient: MINGO VAUGHAN [id number] [address] [place], [place] [address] [id number] I MR#: [id number] NAME: MINGO VAUGHAN ROOM: 320 Age: 57 Sex: F Admission Date: 03/24/2017 : 1960 Attending Physician: Khloe Merino M.D. Primary Care Physician: Primary Care Physician No Requesting Physician: Liza Penn M.D. CONSULTATION REPORT We were asked to see her by Dr. Penn. REASON FOR CONSULTATION Pneumonia and respiratory failure. HISTORY OF PRESENT ILLNESS Ms. Vaughan is a 57-year-old female followed by us, who presents with increasing shortness of air over the last few days. This all started a few days ago with some sniffles and cold and flu-like symptoms. This progressed to a cough with yellow sputum. She became more short of air. She smokes somewhere between one and two packs cigarettes a day, but she says she has not smoked for two weeks. She normally gets around okay. She denies any chest pain. She denies any leg swelling. PAST MEDICAL HISTORY Otherwise, significant for hypercapnic respiratory failure. She was found down by her in 01/2017 and at that time, her pCO2 was 110. She did respond to BiPAP at that time, but she did not go home on BiPAP, CPAP, or trilogy. History of hypertension, history of diabetes mellitus, history of pain syndrome, heart murmur. PAST SURGICAL HISTORY Include right knee manipulation, cyst removal in her hand, tubal ligation, knee scope, back surgery. MEDICATIONS On admission had included Advair, I believe 250/50 one puff b.i.d., Combivent p.r.n., DuoNebs p.r.n., gabapentin 600 mg t.i.d., Zestoretic 20/25 daily, Glucophage 500 mg daily, Prilosec should be 20 mg daily. Supposedly prednisone and Omnicef, but I am not sure she was on those. ALLERGIES No known drug allergies. SOCIAL HISTORY She smoked 1 to 2 packs of cigarettes a day, but she has not smoked in about 2 weeks. FAMILY HISTORY Significant for lung cancer in a brother. REVIEW OF SYSTEMS She had a little bit of nausea. No vomiting. No diarrhea. She has joint Unit #: [id number] #: [id number] Patient: MINGO VAUGHAN aches and back pain. Appetite has been fair. She has sinus congestion. All other systems are negative except as mentioned. PHYSICAL EXAMINATION GENERAL: She presents as a middle-aged female, in no acute distress. VITAL SIGNS: Temperature was 98, pulse 114, respirations 22, blood pressure 140/62. NECK: Without adenopathy. LUNGS: Evaluation of her lungs reveals that her breathing is not labored. Lungs reveal inspiratory rhonchi right base. Decreased breath sounds bilaterally. HEART: Mildly tachycardic. ABDOMEN: Soft and nontender. Bowel sounds present. EXTREMITIES: Without edema. NEUROLOGIC: She is awake and alert. DIAGNOSTIC STUDIES IMAGING STUDIES: Chest x-ray was reviewed by me. She had increased interstitial markings right base and the right hemidiaphragm is a bit obscured. I think this is consistent with a right lower lobe infiltrate. LABORATORY RESULTS: She had a blood gas, pH of 7.31, pCO2 of 77, PO2 of 56. Her white blood cell count was 10.5, H and H of 10.4 and 32, 337,000 platelets. Serum chemistry is significant for BUN of 7, creatinine 0.6, bicarb elevated at 37. BNP 103. Lactic acid normal at 1.1. IMPRESSION 1. Acute on chronic hypercapnic and hypoxemic respiratory failure. It is notable that she certainly has been here with much higher pCO2 in the past. She was here with respiratory failure recently and when she left, her pCO2 was 69, so that is probably close to what we would expect for a baseline. 2. Right lower lobe pneumonia. This is presumably healthcare associated because of being here fairly recently. 3. Diabetes. 4. Tobacco dependence, which may be in remission, but that remains to be seen. PLAN She was started on vancomycin and that was probably only x1, and tobramycin and Zosyn. I would probably have her on cefepime. When she was here before, I think she may have been on Zosyn, but I cannot tell. I would plan on cefepime for right now. Sputum is being requested and I agree and she is on Solu-Medrol 40 IV q.8h, and I agree and I will do my best to convince her to use her BiPAP. Thank you very much for allowing me to participate in care of this patient. Dictated by... Cathy Aldana/lu TD: 03/25/2017 12:48 JOB #: [id number] Unit #: [id number] #: [id number] Patient: MINGO VAUGHAN [facility]uf[facility] CONSULTATION REPORT Page 1 of 1 X Josiah Schaeffer MD CONSULTATION REPORT
--- NOTE | ~2017-03-24 | DS ---
Unit #: [id number] #: [id number] Patient: MINGO VAUGHAN [id number] [address] [place], [place] [address] [id number] I MR#: [id number] NAME: MINGO VAUGHAN. ROOM: 320 Age: 57 Sex: F Admission Date: 03/24/2017 : 1960 Discharge Date: 03/27/2017 Attending Physician: Khloe Merino M.D. Primary Care Physician: Primary Care Physician No DISCHARGE SUMMARY REASON FOR ADMISSION Dyspnea. HISTORY OF PRESENT ILLNESS/HOSPITAL COURSE The patient is a 57-year-old female with underlying history of end-stage COPD, on 2 L of oxygen at night predominantly, brought to the emergency department with complaints of increased shortness of breath and dyspnea for approximately 48 hours. Initially, she was found to be approximately 78% on room air. While at home, she had productive cough as well as diffuse arthralgias, myalgias, as well as increased fatigue over the past several days. On initial arrival, an ABG in the emergency room showed a pH of 7.3, pCO2 of 77, pO2 of 56, and bicarb of 39. Initially, she was placed on BiPAP; however, she became very agitated and refused BiPAP and she subsequently was placed on Oxymizer at approximately 8 L. Her O2 sats subsequently improved to the low 90s. She was admitted and placed on telemetry floor. Consultation was placed to Dr. Estevez and associates for pulmonary services. She was placed on routine medications for COPD exacerbation. She underwent routine blood cultures, which did not show any bacterial growth. She underwent a CT chest noncontrast on 03/25/2017, which did reveal findings consistent with a dense consolidation and/or pneumonia on the right lower lobe. Superimposed infiltrates were noted, and a followup CT chest noncontrast in [address] Estevez has since weaned her IV Solu-Medrol to p.o. prednisone. She has also been changed over to p.o. antibiotics. The patient currently is on 4 L at rest. At this point in time, we will re-evaluate her oxygen requirements for discharge. It seems likely that she will require anywhere from 2 to 4 L of O2 continuously rather than just at night. This oxygen evaluation will be done prior to discharge. I have asked her to follow up with her primary care physician, Dr. Fernandez, within 7 days to do an ambulatory pulse ox once again and re-evaluations may be done at that point in time. She will also follow up with Dr. Estevez as an outpatient from Pulmonary Services within 4-6 weeks. At the time of discharge, the patient's hemoglobin is 9.8. The patient has a creatinine of 0.6. Her hemoglobin A1c this hospital admission was 6.8%. Her B12 level was noted to be low at 177. She was given a vitamin B12 IM injection prior to discharge, and it is requested that her primary care Unit #: [id number] #: [id number] Patient: MINGO VAUGHAN physician continue to follow this at the time of discharge. FINAL DISCHARGE DIAGNOSES 1. Acute on chronic respiratory failure, hypoxic/hypercapnic. 2. 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 3. Asthma history. 4. Hypertension. 5. Hyperlipidemia. 6. B12 deficiency. 7. Chronic back pain. 8. Neuropathy, likely secondary to diabetes. 9. Generalized anxiety disorder. DISCHARGE MEDICATIONS Advair 250/50 one puff b.i.d.; Combivent Respimat one inhalation q.6 hours; prednisone 30 mg p.o. b.i.d. x3 days, then daily x3 days, then 20 mg daily x3 days, then 10 mg daily x3 days, then stop; lisinopril/hydrochlorothiazide 20/25 one tablet p.o. daily; Neurontin 600 mg p.o. b.i.d.; Glucophage 500 mg p.o. daily; Seroquel 100 mg p.o. q.h.s.; Zocor 20 mg p.o. daily; Norvasc 5 mg p.o. daily; oxycodone 10/325 one tablet p.o. q.6 p.r.n., this is a home medication, no new prescription given; Zithromax 250 mg p.o. q.a.m. x3 doses; omeprazole 20 mg p.o. daily; Daliresp 500 mcg p.o. daily. DISCHARGE CONDITION Stable. DISCHARGE DISPOSITION Home. Follow up as outlined above. Dictated by... Cathy Garnica/lu TD: 03/28/2017 23:00 JOB #: [id number] DISCHARGE SUMMARY Page 1 of 1 X Khloe Merino MD X DISCHARGE SUMMARY
--- NOTE | ~2017-03-24 | EKG ---
PATIENT: MINGO VAUGHAN UNIT #: [id number] Ventricular Rate: 106 BPM Atrial Rate: 106 BPM P-R Interval: 122 ms QRS Duration: 70 ms Q-T Interval: 344 ms QTC Calculation(Bezet): 456 ms P [place]: 63 degrees Calculated R [place]: 42 degrees Calculated T [place]: 68 degrees Diagnosis Line: Sinus tachycardia Baseline wander Diagnosis Line: Otherwise normal ECG Diagnosis Line: When compared with ECG of 23-JAN-2017 10:16, Diagnosis Line: No significant change was found Diagnosis Line: Confirmed by VINNIE BLISS MD ([id number]) on 03/24/2017 Diagnosis Line: 11:08:39 PM INTERPRETING MD: RUTHY OCHOA
--- NOTE | ~2017-03-24 | HP ---
Unit #: [id number] #: [id number] Patient: MINGO VAUGHAN [id number] [address] [address] [id number] I MR#: [id number] NAME: MINGO VAUGHAN. ROOM: 54817 Age: 57 Sex: F Admission Date: 03/24/2017 : 1960 Attending Physician: Espinoza Penn M.D. HISTORY AND PHYSICAL CHIEF COMPLAINT Shortness of breath. HISTORY OF PRESENT ILLNESS The patient is a 57-year-old female with a history of COPD and chronic respiratory failure, on two liters of oxygen at night, brought to the emergency room complaining of shortness of breath. The patient stated that patient has been having shortness of breath for two days. The patient was found to be desaturated on room air around 78% to 79% at home. The patient stated that patient has also had a productive cough whitish to yellowish in color. The patient continues to smoke a half a pack per day. The patient had ABG at the time of arrival with a pH of 7.3, PCO2 of 77.3, PO2 of 56, and bicarb 39.2. Patient was initially placed on BiPAP briefly. However, the patient refused the BiPAP. The patient is on Oxymizer at eight liters and saturating around 90%. The patient is being admitted for the above reasons. Denies any fever. Denies any chills. Denies any nausea and vomiting. PAST MEDICAL HISTORY 1. COPD. 2. Asthma. 3. Chronic respiratory failure on 2.5 liters of oxygen at bedtime. 4. Hypertension. 5. Hyperlipidemia. 6. Degenerative joint disease. 7. Cardiac murmur. 8. Chronic back pain. PAST SURGICAL HISTORY 1. Cyst removed from the left hand. 2. Bilateral knee surgeries. 3. Negative EGD in 2016. SOCIAL HISTORY The patient lives with her . She smokes a half a pack per day. Denies any history of illicit (1) and alcohol. FAMILY HISTORY Diabetes. ALLERGIES No known drug allergies. HOME MEDICATIONS Unit #: [id number] #: [id number] Patient: MINGO VAUGHAN 1. Oxycodone. 2. Gabapentin. 3. Advair. 4. Combivent Respimat. 5. Zestoretic. 6. Glucophage. 7. Seroquel. 8. Zocor. 9. Prednisone. 10. Omnicef. REVIEW OF SYSTEMS Positive for shortness of breath. Positive for cough. Positive for respiratory failure/respiratory distress. Negative for chest pain. Negative for nausea and vomiting. All other systems have been reviewed and are negative except as mentioned in the HPI. PHYSICAL EXAMINATION GENERAL: Patient is lying in bed not in acute distress. VITAL SIGNS: Temperature 98.3, pulse 119, respiratory rate 20, blood pressure 144/90, saturating 92% at 2 liters. HEENT: Head atraumatic, normocephalic. Pupils equal, round, and reactive to light and accommodation. Extraocular movements are intact. NECK: Supple. LUNGS: Decreased air entry at the bases. Positive for rhonchi. HEART: Regular rate and rhythm. ABDOMEN: Soft. Positive bowel sounds. EXTREMITIES: No cyanosis, no clubbing. NEUROLOGIC: Alert, awake, and oriented. No gross focal motor deficit. DIAGNOSTIC STUDIES LABORATORY: ABG shows pH of 7.31, PCO2 of 77.3, PO2 of 56.6, bicarb 39.2, saturation 90.2. WBC 10.5, hemoglobin 10.4, hematocrit 32.6, platelets 337,000. Troponin less than 0.05. Lactic acid 0.7. Sodium 139, potassium 3.9, chloride 95, bicarb 37, glucose 144, BUN 7, creatinine 0.6, AST 15, ALT 16, alkaline phosphatase 90. INR is 1. BNP is 103. Troponin less than 0.05. IMAGING: Chest x-ray shows right lower lobe infiltrate as read by the ER physician. ASSESSMENT 1. Acute on chronic respiratory failure. 2. Pneumonia. 3. Chronic obstructive pulmonary disease exacerbation. PLAN Admit the patient to inpatient. Continue with Solu-Medrol and DuoNebs. Patient will be consulted with Dr. Schaeffer/Dr. Estevez. Continue with antibiotics with Zosyn and Zithromax with pharmacy to dose. Check sputum cultures and check the procalcitonin level. Repeat the labs again in the morning. Continue with Oxymizer as the patient prefers Oxymizer and titrate oxygen above 88% to 90%. Patient is refusing BiPAP at this time. Further recommendations will follow. Dictated by Espinoza Penn M.D. Unit #: [id number] #: [id number] Patient: VAUGHANMINGO Eufemia Jackson TD: 03/24/2017 18:55 JOB #: [id number] HISTORY AND PHYSICAL Page 1 of 1 X ESPINOZA PENN MD X HISTORY AND PHYSICAL
--- NOTE | ~2017-03-24 | CT57 ---
[facility] A Service of [facility] RADIOLOGY TEXT RESULTS PATIENT: MINGO VAUGHAN LOCATION: [facility] 320-01 : 60 UNIT #: [id number] AGE: [address]: Khloe Merino MD SEX: F ORDER DR: [id number] [facility] [address] [place], [place] [address] [id number] I MR#: [id number] #: [id number] NAME: MINGO VAUGHAN. : 1960 SEX: F STUDY DATE/TIME: 03/25/2017 12:36 UNIT: [address] ROOM: [facility] STUDY DESCRIPTION: CT Chest Wo Cont Attending Physician: Khloe Merino M.D. Ordering Physician: Khloe Merino M.D. Primary Care Physician: No Primary Care Physician MEDICAL IMAGING REPORT This report is preliminary unless electronic signature is present EXAM CT chest without contrast. INDICATION Chronic respiratory failure. Patient is on 2 L of oxygen at night. Patient has also had shortness of breath for 2 days and is having low oxygen saturations since yesterday. TECHNIQUE Axial CT images were obtained from the thoracic inlet through the dome of the diaphragm. No intravenous contrast material was administered. This CT exam was performed with one or more of the following radiation dose reduction techniques: automatic exposure control, adjustment of mA and/or kV according to patient size, and iterative reconstruction. FINDINGS Background emphysematous changes are seen. This patient is noted to have dense consolidation within the right lower lobe, which certainly could reflect pneumonia in the appropriate clinical setting and is associated with a trace right pleural effusion. No infiltrates are seen on the left. There are also scattered micronodules seen throughout the right lung. For example, there is a cluster of micronodules within the right upper lobe with single largest measuring up to about 5 mm. An additional nodule is seen within the right middle lobe measuring about 9 mm and an additional pleural-based nodule is seen within the right lower lobe measuring about 1 cm. All of these are indeterminate in a patient with background emphysematous changes. The thyroid gland, trachea and esophagus appear unremarkable. There is no pericardial effusion. Mediastinal lymph nodes really do not appear pathologically enlarged. I do not see any acute abnormality within the upper abdomen. [facility]. [facility] A Service of [facility] RADIOLOGY TEXT RESULTS PATIENT: MINGO VAUGHAN LOCATION: [facility] 320-01 : 60 UNIT #: [id number] AGE: [address]: Khloe Merino MD SEX: F ORDER DR: Review of bony windows does not demonstrate any aggressive osseous abnormalities. IMPRESSION Patient does appear to have some consolidation within the right lower lobe. Some of this could reflect atelectasis, but certainly superimposed infiltrates are not excluded, especially given history. Patient is also noted to have a trace right pleural effusion. Furthermore, scattered noncalcified pulmonary nodules are seen throughout the right lung, many of these certainly could be infectious or inflammatory in etiology, but patient has background emphysematous changes and I would suggest short-term CT followup in 3 months to document resolution. Please see body of report for any other additional incidental findings. Dictated by... Chelsea Hopkins M.D. THIS IS AN ELECTRONICALLY VERIFIED REPORT Chelsea Hopkins M.D. at 03/27/2017 8:07 AM HOME/varsha TD: 03/26/2017 10:12 JOB #: [id number] MEDICAL IMAGING REPORT Page 1 of 1 COPY
[~2017-03-24 11:41] MED LIST changes: +COMBIVENT RESPIM4 GM INH; +GABAPENTIN600 MG PO; +METFORMIN PO; +OMNICEF300 MG PO; +PATIENT'S PHARMACY; +PRILOSEC PO; +ZESTORETIC 20-1 EACH PO; +ZOCOR PO
[2017-03-24 12:23] LABS: ARTERIAL BLOOD GAS pH 7.314 (7.350-7.450)
[2017-03-24 12:24] LABS: ARTERIAL BLD GAS O2 SATURATION 90.2 % (90.0-100.0); ARTERIAL BLOOD GAS ALLEN TEST NORMAL; ARTERIAL BLOOD GAS ART SITE LEFT RADIAL; ARTERIAL BLOOD GAS CARBOXY HB 4.2 %sat (0.0-9.0); ARTERIAL BLOOD GAS DELIVERY NASAL CANNULA; ARTERIAL BLOOD GAS HCO3 39.2 mmol/L; ARTERIAL BLOOD GAS LITER FLOW 2.5; ARTERIAL BLOOD GAS PCO2 77.3 mmHg (35.0-45.0); ARTERIAL BLOOD GAS PO2 56.6 mmHg (80.0-100); ARTERIAL DRAW? YES
[2017-03-24 13:12] LABS: BASOPHIL# 0.1 X10e3 (0-0.3); BASOPHIL% 0.5 % (0-2.5); EOSINOPHIL# 0.1 X10e3 (0-0.7); EOSINOPHIL% 0.7 % (0.0-7.0); HEMATOCRIT 32.6 % (35.0-45.0); HEMOGLOBIN 10.4 gm/dL (12.0-16.0); LYMPHOCYTE# 1.5 X10e3 (1.0-3.5); LYMPHOCYTE% 14.1 % (17.0-45.0); MEAN CELL VOLUME 87.9 FL (83-96); MEAN CORPUSCULAR HEMOGLOBIN 28.1 PG (28-34); MEAN PLATELET VOLUME 7.1 FL (6.5-11.5); MONOCYTE# 0.5 X10e3 (0-1.0); NEUTROPHIL# 8.3 X10e3 (1.5-7.1); NEUTROPHIL% 79.7 % (40-75); PLATELET COUNT 337 X10e3 (140-420); RED CELL DISTRIBUTION WIDTH 16.9 % (11.0-15.5); WHITE BLOOD COUNT 10.5 X10e3 (4.0-10.5)
[2017-03-24 13:14] LABS: DIFF IND NO
[2017-03-24 13:26] LABS: PROTHROMBIN TIME (PATIENT) 10.7 SECONDS (10.0-11.7)
[2017-03-24 13:29] LABS: POC - CKMB 5.2 ng/mL (0.0-7.9); POC - TROPONIN <0.05 ng/mL (<=0.05)
[2017-03-24 13:42] LABS: ALBUMIN SERUM 3.7 g/dL (3.5-5.0); ALKALINE PHOSPHATASE 90 U/L (32-92); ALT (SGPT) 16 U/L (10-40); AST (SGOT) 15 U/L (10-42); BILIRUBIN,TOTAL 0.3 mg/dL (0.2-2.0); BLOOD UREA NITROGEN 7 mg/dL (9-23); BUN/CREATININE RATIO 11.66; CALCIUM SERUM 9.1 mg/dL (8.4-10.2); CARBON DIOXIDE 37 mmol/L (22-31); CHLORIDE 95 mmol/L (100-111); CREATININE SERUM 0.6 mg/dL (0.6-1.4); GLOM FILT RATE Estimated 101.2 mL/min (>60); GLUCOSE FASTING 144 mg/dL (70-110); POTASSIUM 3.9 mmol/L (3.5-5.1); PROTEIN TOTAL SERUM 7.6 g/dL (6.0-8.3); SODIUM 139 mmol/L (135-145)
[2017-03-24 13:43] LABS: BILIRUBIN, DIRECT <0.1 mg/dL (0.0-0.2); BILIRUBIN,INDIRECT 0.2 mg/dL (0.0-0.9)
[2017-03-24 13:46] LABS: PARTIAL THROMBOPLASTIN TIME 26.4 SECONDS (23.5-31.3)
[2017-03-24 16:19] LABS: POC - CKMB 6.3 ng/mL (0.0-7.9); POC - TROPONIN <0.05 ng/mL (<=0.05)
[2017-03-25 06:22] LABS: BASOPHIL# 0.1 X10e3 (0-0.3); BASOPHIL% 0.4 % (0-2.5); HEMATOCRIT 32.2 % (35.0-45.0); HEMOGLOBIN 9.9 gm/dL (12.0-16.0); LYMPHOCYTE# 1.1 X10e3 (1.0-3.5); LYMPHOCYTE% 8.5 % (17.0-45.0); MEAN CORPUSCULAR HEMOGLOBIN 27.2 PG (28-34); MEAN CORPUSCULAR HGB CONC 30.9 g/dL (30-36); MEAN PLATELET VOLUME 7.5 FL (6.5-11.5); MONOCYTE# 0.2 X10e3 (0-1.0); MONOCYTE% 1.4 % (3.0-12.0); NEUTROPHIL# 11.7 X10e3 (1.5-7.1); NEUTROPHIL% 89.7 % (40-75); PLATELET COUNT 349 X10e3 (140-420); RED BLOOD COUNT 3.66 X10e (3.90-5.30); WHITE BLOOD COUNT 13.1 X10e3 (4.0-10.5)
[2017-03-25 06:23] LABS: DIFF IND NO
[2017-03-25 06:42] LABS: CALCIUM SERUM 9.3 mg/dL (8.4-10.2); CREATININE SERUM 0.5 mg/dL (0.6-1.4); GLOM FILT RATE Estimated 107.4 mL/min (>60); POTASSIUM 5.1 mmol/L (3.5-5.1)
[2017-03-26 06:10] LABS: HEMATOCRIT 32.1 % (35.0-45.0); MEAN CELL VOLUME 87.1 FL (83-96); MEAN CORPUSCULAR HEMOGLOBIN 27.1 PG (28-34); MEAN CORPUSCULAR HGB CONC 31.1 g/dL (30-36); MEAN PLATELET VOLUME 7.3 FL (6.5-11.5); RED BLOOD COUNT 3.68 X10e (3.90-5.30); RED CELL DISTRIBUTION WIDTH 16.7 % (11.0-15.5); WHITE BLOOD COUNT 17.7 X10e3 (4.0-10.5)
[2017-03-26 06:18] LABS: CALCIUM SERUM 9.1 mg/dL (8.4-10.2); CREATININE SERUM 0.5 mg/dL (0.6-1.4); GLOM FILT RATE Estimated 107.4 mL/min (>60); MAGNESIUM 2.1 mg/dL (1.6-3.0); POTASSIUM 4.1 mmol/L (3.5-5.1)
[2017-03-27 04:49] LABS: HEMATOCRIT 31.2 % (35.0-45.0); HEMOGLOBIN 9.8 gm/dL (12.0-16.0); MEAN CELL VOLUME 86.5 FL (83-96); MEAN CORPUSCULAR HGB CONC 31.2 g/dL (30-36); MEAN PLATELET VOLUME 7.4 FL (6.5-11.5); RED BLOOD COUNT 3.61 X10e (3.90-5.30); RED CELL DISTRIBUTION WIDTH 16.8 % (11.0-15.5); WHITE BLOOD COUNT 16.5 X10e3 (4.0-10.5)
[2017-03-27 05:08] LABS: BUN/CREATININE RATIO 36.66; CALCIUM SERUM 9.3 mg/dL (8.4-10.2); CREATININE SERUM 0.6 mg/dL (0.6-1.4); GLOM FILT RATE Estimated 101.2 mL/min (>60); POTASSIUM 4.6 mmol/L (3.5-5.1)
[2017-03-27] MEDS ORDERED: PREDNISONE10 M1 PO (11:11)
[2017-03-27] MEDS ORDERED: NORVASC PO (11:27)
[2017-03-27] MEDS ORDERED: DALIRESP500 MCG PO (11:48)
[2017-03-27] MEDS ORDERED: OMNICEF300 M1 PO (11:49)
== END 2017-03-27 15:35 | disposition home health service (06) | DRG 189 ==
LOC: CED 11:41 → CEDOF 14:45 → CED 14:51 → C3A PCU 20:19 → CEDOF 20:19 → C3A PCU 03-25 07:49
PROVIDERS: Emergency Medicine; Family Medicine; Internal Medicine
DX: J96.21 Acute and chronic respiratory failure with hypoxia (principal); J18.9 Pneumonia, unspecified organism; E11.40 Type 2 diabetes mellitus with diabetic neuropathy, unspecified; J44.0 Chronic obstructive pulmonary disease with (acute) lower respiratory infection; J44.1 Chronic obstructive pulmonary disease with (acute) exacerbation; Z99.81 Dependence on supplemental oxygen; J96.22 Acute and chronic respiratory failure with hypercapnia; Y95 Nosocomial condition; I10 Essential (primary) hypertension; E78.5 Hyperlipidemia, unspecified; E53.8 Deficiency of other specified B group vitamins; G89.29 Other chronic pain; M54.9 Dorsalgia, unspecified; F41.1 Generalized anxiety disorder; F17.210 Nicotine dependence, cigarettes, uncomplicated; Z98.51 Tubal ligation status; Z83.3 Family history of diabetes mellitus; Z80.1 Family history of malignant neoplasm of trachea, bronchus and lung
CPT/HCPCS: 36415; 36600; 71010; 71250; 80048; 80061; 80076; 82308; 82553; 82607; 82803; 82947; 83036; 83605; 83735; 83880; 84443; 84484; 85025; 85027; 85610; 85730; 87040; 87070; 87205; 93005; 94640; 94660; 94760; 94761; 96365; 96367; 97116; 97161; 99291; G8978-GP; G8979-GP; G8980-GP; J0456; J0692; J1650; J1815; J2060; J2543; J2920; J3260; J3370; J3420